=== PATIENT | female | born 1945 | race Caucasian/White ===

== ENCOUNTER 2017-07-03 20:44 | Emergency (ER) | payer MEDICARE ==
[~2017-07-03] VITALS: Ht 165.1 cm; Wt 63.5 kg
[~2017-07-03 20:44] MED LIST: ACET325 PO; AMIT75 PO; BISA10S PR; CALCA500CH PO; CLON2 PO; DIPATR PO; HYDMOR2 PO; METO50 PO; NICO14TP TOP; OMEP20ER PO; PROM12.5S PR; SIME80CH PO; TAMS.4ER PO
[2017-07-03 21:09] LABS: BASOPHILS ABSOLUTE AUTO 0.07 K/mm3 (0.00-0.23); BASOPHILS PERCENT AUTO 1 % (0-2); EOSINOPHILS ABSOLUTE AUTO 0.43 K/mm3 (0.00-0.68); EOSINOPHILS PERCENT AUTO 6 % (0-6); Hematocrit 32.3 % (33.0-51.0); Hemoglobin 10.2 g/dL (11.5-16.0); IMMATURE GRAN ABSOLUTE AUTO 0.01 K/mm3 (0.00-0.10); IMMATURE GRAN PERCENT AUTO 0 % (0-1); LYMPHOCYTES ABSOLUTE AUTO 1.91 K/mm3 (0.84-5.20); LYMPHOCYTES PERCENT AUTO 26 % (21-46); MONOCYTES ABSOLUTE AUTO 0.55 K/mm3 (0.16-1.47); MONOCYTES PERCENT AUTO 7 % (4-13); Mean Corpuscular HGB 26.2 pg (26.0-34.0); Mean Corpuscular HGB Conc 31.6 g/dL (31.5-36.5); Mean Corpuscular Volume 83 fL (80-100); Mean Platelet Volume 8.4 fL (9.1-12.4); NEUTROPHILS ABSOLUTE AUTO 4.49 K/mm3 (1.96-9.15); NEUTROPHILS PERCENT AUTO 60 % (41-73); Platelet Count 331 K/mm3 (150-400); RDW Coefficient Variation 16.2 % (11.7-14.2); RDW Standard Deviation 49.1 fL (35.1-46.3); White Blood Cell Count 7.46 K/mm3 (4.00-11.30)
[2017-07-03 21:29] LABS: Alanine Aminotransfer (ALT/SGP 14 U/L (12-78); Albumin, Blood 3.2 g/dL (3.4-5.0); Albumin/Globulin Ratio 0.7 (0.8-1.8); Alk Phos 130 U/L (50-136); Anion Gap 9 mmol/L (6-16); Aspartate Aminotrans (AST/SGOT 12 U/L (12-37); Bilirubin, Total 0.2 mg/dL (0.1-1.0); Blood Urea Nitrogen 9 mg/dL (8-24); Bun/Creatinine Ratio 16.1 (12.0-20.0); CO2, Blood 24 mmol/L (21-32); Calcium, Blood 8.7 mg/dL (8.5-10.1); Chloride, Blood 99 mmol/L (98-108); Creatinine, Blood 0.56 mg/dL (0.40-1.00); Globulin, Blood 4.4 g/dL (2.2-4.0); Glomerular Filtration Rate >60 (60-); Glucose, Blood 114 mg/dL (70-99); Potassium, Blood 3.5 mmol/L (3.5-5.5); Sodium, Blood 132 mmol/L (136-145); Total Protein, Blood 7.6 g/dL (6.4-8.2); Troponin I <0.015 ng/mL (0.000-0.040)
[2017-07-03] MEDS ORDERED: HYDR1TAB94 PO (22:05)
[2017-07-03] MEDS ORDERED: AMLO5 PO (22:05)
[2017-07-03] MEDS ORDERED: PRAV20 PO (22:06)
[2017-07-04] MEDS ORDERED: Norco 5-325 Ta1 EACH PO (00:19)
[2017-07-04] MEDS ORDERED: LEVO750 PO (00:19)
== END 2017-07-04 00:42 | disposition home or self-care (01) ==
LOC: ER 20:44
PROVIDERS: Emergency Medicine
DX: I71.4 Abdominal aortic aneurysm, without rupture (principal); Z88.2 Allergy status to sulfonamides; Z88.8 Allergy status to other drugs, medicaments and biological substances; Z79.899 Other long term (current) drug therapy; I10 Essential (primary) hypertension; F41.9 Anxiety disorder, unspecified; Z87.891 Personal history of nicotine dependence
CPT/HCPCS: 36415; 71046; 71260; 80053; 83880; 84484; 85025; 93005; 93010; 96374; 96375; 99284; J1170; J2405; Q9967

== ENCOUNTER 2017-07-06 09:16 | Emergency (ER) | payer MEDICARE ==
[~2017-07-06] VITALS: Ht 167.6 cm; Wt 63.5 kg
[~2017-07-06 09:16] MED LIST changes: +AMLO5 PO; +HYDR1TAB94 PO; +LEVO750 PO; +Norco 5-325 Ta1 EACH PO; +PRAV20 PO
[2017-07-06] MEDS ORDERED: WARF5 PO (09:39)
[2017-07-06] MEDS ORDERED: ENOX60I SC (09:39)
[2017-07-06] MEDS ORDERED: BACL10 PO (09:40)
[2017-07-06] MEDS ORDERED: DULO30 (09:40)
[2017-07-06 09:58] LABS: BASOPHILS ABSOLUTE AUTO 0.07 K/mm3 (0.00-0.23); BASOPHILS PERCENT AUTO 1 % (0-2); EOSINOPHILS ABSOLUTE AUTO 0.53 K/mm3 (0.00-0.68); EOSINOPHILS PERCENT AUTO 7 % (0-6); Hematocrit 33.4 % (33.0-51.0); Hemoglobin 10.5 g/dL (11.5-16.0); IMMATURE GRAN ABSOLUTE AUTO 0.02 K/mm3 (0.00-0.10); IMMATURE GRAN PERCENT AUTO 0 % (0-1); LYMPHOCYTES ABSOLUTE AUTO 1.33 K/mm3 (0.84-5.20); LYMPHOCYTES PERCENT AUTO 16 % (21-46); MONOCYTES ABSOLUTE AUTO 0.67 K/mm3 (0.16-1.47); MONOCYTES PERCENT AUTO 8 % (4-13); Mean Corpuscular HGB 26.1 pg (26.0-34.0); Mean Corpuscular HGB Conc 31.4 g/dL (31.5-36.5); Mean Corpuscular Volume 83 fL (80-100); NEUTROPHILS PERCENT AUTO 68 % (41-73); RDW Coefficient Variation 16.2 % (11.7-14.2); RDW Standard Deviation 48.9 fL (35.1-46.3); Red Blood Cell Count 4.02 M/mm3 (3.80-5.20); White Blood Cell Count 8.12 K/mm3 (4.00-11.30)
[2017-07-06 10:00] LABS: Mean Platelet Volume 8.6 fL (9.1-12.4); Platelet Count 331 K/mm3 (150-400)
[2017-07-06 10:10] LABS: International Normalized Ratio 1.04; Prothrombin Time Results 10.8 Sec (9.7-11.5)
[2017-07-06 10:17] LABS: Alanine Aminotransfer (ALT/SGP 11 U/L (12-78); Albumin, Blood 3.2 g/dL (3.4-5.0); Albumin/Globulin Ratio 0.8 (0.8-1.8); Alk Phos 125 U/L (50-136); Anion Gap 6 mmol/L (6-16); Aspartate Aminotrans (AST/SGOT 12 U/L (12-37); Bilirubin, Total 0.1 mg/dL (0.1-1.0); Blood Urea Nitrogen 9 mg/dL (8-24); Bun/Creatinine Ratio 15.7 (12.0-20.0); CO2, Blood 26 mmol/L (21-32); Calcium, Blood 8.8 mg/dL (8.5-10.1); Chloride, Blood 101 mmol/L (98-108); Creatinine, Blood 0.57 mg/dL (0.40-1.00); Globulin, Blood 4.2 g/dL (2.2-4.0); Glomerular Filtration Rate >60 (60-); Glucose, Blood 98 mg/dL (70-99); Potassium, Blood 4.1 mmol/L (3.5-5.5); Sodium, Blood 133 mmol/L (136-145); Total Protein, Blood 7.4 g/dL (6.4-8.2); Troponin I <0.015 ng/mL (0.000-0.040)
== END 2017-07-06 12:59 | disposition home or self-care (01) ==
LOC: ER 09:16
PROVIDERS: Emergency Medicine
DX: I82.412 Acute embolism and thrombosis of left femoral vein (principal); I26.99 Other pulmonary embolism without acute cor pulmonale; I10 Essential (primary) hypertension; F41.9 Anxiety disorder, unspecified; F17.200 Nicotine dependence, unspecified, uncomplicated; Z88.2 Allergy status to sulfonamides; Z88.6 Allergy status to analgesic agent; Z79.899 Other long term (current) drug therapy; Z79.01 Long term (current) use of anticoagulants
CPT/HCPCS: 36415; 80053; 83880; 84484; 85025; 85610; 85730; 93005; 93010; 93970; 96374; 99284; J2405

== ENCOUNTER 2017-07-07 13:49 | Emergency (ER) | payer MEDICARE ==
[~2017-07-07] VITALS: Ht 167.6 cm; Wt 63.5 kg
[~2017-07-07 13:49] MED LIST changes: +BACL10 PO; +DULO30; +ENOX60I SC; +WARF5 PO
[2017-07-07 14:42] LABS: BASOPHILS ABSOLUTE AUTO 0.05 K/mm3 (0.00-0.23); BASOPHILS PERCENT AUTO 1 % (0-2); EOSINOPHILS ABSOLUTE AUTO 0.34 K/mm3 (0.00-0.68); EOSINOPHILS PERCENT AUTO 4 % (0-6); Hematocrit 33.1 % (33.0-51.0); Hemoglobin 10.4 g/dL (11.5-16.0); IMMATURE GRAN ABSOLUTE AUTO 0.02 K/mm3 (0.00-0.10); IMMATURE GRAN PERCENT AUTO 0 % (0-1); LYMPHOCYTES ABSOLUTE AUTO 1.01 K/mm3 (0.84-5.20); LYMPHOCYTES PERCENT AUTO 13 % (21-46); MONOCYTES ABSOLUTE AUTO 0.52 K/mm3 (0.16-1.47); MONOCYTES PERCENT AUTO 7 % (4-13); Mean Corpuscular HGB 25.9 pg (26.0-34.0); Mean Corpuscular HGB Conc 31.4 g/dL (31.5-36.5); Mean Corpuscular Volume 83 fL (80-100); Mean Platelet Volume 8.4 fL (9.1-12.4); NEUTROPHILS ABSOLUTE AUTO 5.91 K/mm3 (1.96-9.15); NEUTROPHILS PERCENT AUTO 75 % (41-73); Platelet Count 333 K/mm3 (150-400); RDW Coefficient Variation 16.3 % (11.7-14.2); RDW Standard Deviation 49.2 fL (35.1-46.3); Red Blood Cell Count 4.01 M/mm3 (3.80-5.20); White Blood Cell Count 7.85 K/mm3 (4.00-11.30)
[2017-07-07 14:59] LABS: International Normalized Ratio 1.32; Prothrombin Time Results 13.9 Sec (9.7-11.5)
[2017-07-07 15:01] LABS: Alanine Aminotransfer (ALT/SGP 17 U/L (12-78); Albumin, Blood 3.2 g/dL (3.4-5.0); Albumin/Globulin Ratio 0.7 (0.8-1.8); Alk Phos 120 U/L (50-136); Anion Gap 7 mmol/L (6-16); Aspartate Aminotrans (AST/SGOT 20 U/L (12-37); Bilirubin, Total 0.2 mg/dL (0.1-1.0); Blood Urea Nitrogen 11 mg/dL (8-24); Bun/Creatinine Ratio 17.7 (12.0-20.0); CO2, Blood 26 mmol/L (21-32); Calcium, Blood 8.8 mg/dL (8.5-10.1); Chloride, Blood 102 mmol/L (98-108); Creatinine, Blood 0.62 mg/dL (0.40-1.00); Globulin, Blood 4.4 g/dL (2.2-4.0); Glomerular Filtration Rate >60 (60-); Glucose, Blood 100 mg/dL (70-99); Potassium, Blood 3.7 mmol/L (3.5-5.5); Sodium, Blood 135 mmol/L (136-145); Total Protein, Blood 7.6 g/dL (6.4-8.2)
== END 2017-07-07 16:19 | disposition home or self-care (01) ==
LOC: ER 13:49
PROVIDERS: Emergency Medicine
DX: F41.9 Anxiety disorder, unspecified (principal); I10 Essential (primary) hypertension; Z87.891 Personal history of nicotine dependence; Z79.899 Other long term (current) drug therapy; Z79.01 Long term (current) use of anticoagulants; Z86.711 Personal history of pulmonary embolism; Z86.718 Personal history of other venous thrombosis and embolism
CPT/HCPCS: 36415; 70450; 71046; 80053; 85025; 85610; 93005; 93010; 96374; 99284; J2405

== ENCOUNTER → 2017-07-09 | Outpatient (CLI) | payer MEDICARE ==
[~2017-07-09] MED LIST changes: +Amitriptyline150 MG PO; +CEPH500 PO; +Duoneb 2.5-0.5 M3 ML INH; +FERROUS SULFATE PO; +FURO20 PO; +Fentanyl1 EACH TD; +Kristalose20 GM PO; +LOVENOX SC; +ONDA8 PO; +Oxycodone-Apap1 EAC3 PO; +PRAV20; +Percocet 5-3251 EACH PO; +Prednisone50 MG PO; +Ventolin/Prove6.7 GM INH; +WATER PILL PO; +[UNRECOGNIZED DRUG - OTHER]
[2017-07-09 14:24] LABS: International Normalized Ratio 1.71; Prothrombin Time Results 18.1 Sec (9.7-11.5)
== END ==
LOC: OLS 13:39 → LAB SHORT 13:39
PROVIDERS: Nurse Practitioner Family
DX: I26.99 Other pulmonary embolism without acute cor pulmonale (principal)
CPT/HCPCS: 85610

== ENCOUNTER 2017-07-21 15:52 | Emergency (ER) | payer MEDICARE ==
[~2017-07-21] VITALS: Ht 167.6 cm; Wt 63.5 kg
[~2017-07-21 15:52] MED LIST changes: -Amitriptyline150 MG PO; -CEPH500 PO; -Duoneb 2.5-0.5 M3 ML INH; -FERROUS SULFATE PO; -FURO20 PO; -Fentanyl1 EACH TD; -Kristalose20 GM PO; -LOVENOX SC; -ONDA8 PO; -Oxycodone-Apap1 EAC3 PO; -PRAV20; -Percocet 5-3251 EACH PO; -Prednisone50 MG PO; -Ventolin/Prove6.7 GM INH; -WATER PILL PO; -[UNRECOGNIZED DRUG - OTHER]
[2017-07-21] MEDS ORDERED: Oxycodone-Apap1 EAC3 PO (16:27)
[2017-07-21] MEDS ORDERED: Ventolin/Prove6.7 GM INH (16:28)
[2017-07-21] MEDS ORDERED: Norco 5-325 Ta1 EACH PO (17:04)
== END 2017-07-21 17:20 | disposition home or self-care (01) ==
LOC: ER 15:52
DX: M54.6 Pain in thoracic spine (principal); F41.9 Anxiety disorder, unspecified; I10 Essential (primary) hypertension; Z88.2 Allergy status to sulfonamides; Z79.51 Long term (current) use of inhaled steroids; Z79.01 Long term (current) use of anticoagulants; Z79.899 Other long term (current) drug therapy; Z86.711 Personal history of pulmonary embolism; Z86.718 Personal history of other venous thrombosis and embolism; Z87.891 Personal history of nicotine dependence
CPT/HCPCS: 99283

== ENCOUNTER 2017-07-30 15:58 | Emergency (ER) | payer OTHER, MEDICARE ==
[~2017-07-30] VITALS: Ht 167.6 cm; Wt 63.5 kg
[~2017-07-30 15:58] MED LIST changes: +Oxycodone-Apap1 EAC3 PO; +Ventolin/Prove6.7 GM INH
[2017-07-30] MEDS ORDERED: Norco 5-325 Ta1 EACH PO (17:45)
== END 2017-07-30 18:15 | disposition home or self-care (01) ==
LOC: ER 15:58
DX: S22.41XD Multiple fractures of ribs, right side, subsequent encounter for fracture with routine healing (principal); R91.8 Other nonspecific abnormal finding of lung field; Z88.2 Allergy status to sulfonamides; Z79.899 Other long term (current) drug therapy; Z79.891 Long term (current) use of opiate analgesic; Z79.01 Long term (current) use of anticoagulants; F41.9 Anxiety disorder, unspecified; I10 Essential (primary) hypertension; Z87.891 Personal history of nicotine dependence; V89.2XXD Person injured in unspecified motor-vehicle accident, traffic, subsequent encounter
CPT/HCPCS: 96372; 99284; J3010

== ENCOUNTER 2017-08-02 16:00 | Emergency (ER) | payer MEDICARE ==
[~2017-08-02] VITALS: Ht 167.6 cm; Wt 63.5 kg
[2017-08-02] MEDS ORDERED: CLON2 PO (18:49)
[2017-08-02] MEDS ORDERED: Amitriptyline150 MG PO (18:49)
[2017-08-02] MEDS ORDERED: WATER PILL PO (18:50)
[2017-08-02] MEDS ORDERED: WARF5 PO (18:50)
[2017-08-02] MEDS ORDERED: PRAV20 PO (18:50)
[2017-08-02] MEDS ORDERED: AMLO5 PO (18:50)
[2017-08-02] MEDS ORDERED: LOVENOX SC (18:51)
[2017-08-02] MEDS ORDERED: Norco 5-325 Ta1 EACH PO (18:52)
[2017-08-02] MEDS ORDERED: Percocet 5-3251 EACH PO (20:56)
== END 2017-08-02 21:29 | disposition home or self-care (01) ==
LOC: ER 16:00
DX: M25.511 Pain in right shoulder (principal); G89.3 Neoplasm related pain (acute) (chronic); M84.48XA Pathological fracture, other site, initial encounter for fracture; F41.9 Anxiety disorder, unspecified; I10 Essential (primary) hypertension; Z86.711 Personal history of pulmonary embolism; Z86.718 Personal history of other venous thrombosis and embolism; Z88.2 Allergy status to sulfonamides; Z88.6 Allergy status to analgesic agent; Z79.899 Other long term (current) drug therapy; Z79.01 Long term (current) use of anticoagulants; Z87.891 Personal history of nicotine dependence
CPT/HCPCS: 73030; 93005; 93010; 96372; 99284; J3010

== ENCOUNTER 2017-08-18 18:24 | Emergency (ER) | payer MEDICARE ==
[~2017-08-18] VITALS: Ht 167.6 cm; Wt 63.5 kg
[~2017-08-18 18:24] MED LIST changes: +Amitriptyline150 MG PO; +LOVENOX SC; +Percocet 5-3251 EACH PO; +WATER PILL PO
[2017-08-18] MEDS ORDERED: FURO20 PO (18:48)
[2017-08-18 19:32] LABS: Source, Urine Catheter
[2017-08-18 19:37] LABS: BASOPHILS ABSOLUTE AUTO 0.05 K/mm3 (0.00-0.23); BASOPHILS PERCENT AUTO 1 % (0-2); EOSINOPHILS ABSOLUTE AUTO 0.45 K/mm3 (0.00-0.68); EOSINOPHILS PERCENT AUTO 6 % (0-6); Hematocrit 27.4 % (33.0-51.0); Hemoglobin 8.8 g/dL (11.5-16.0); IMMATURE GRAN ABSOLUTE AUTO 0.02 K/mm3 (0.00-0.10); IMMATURE GRAN PERCENT AUTO 0 % (0-1); LYMPHOCYTES ABSOLUTE AUTO 1.55 K/mm3 (0.84-5.20); LYMPHOCYTES PERCENT AUTO 22 % (21-46); MONOCYTES ABSOLUTE AUTO 0.72 K/mm3 (0.16-1.47); MONOCYTES PERCENT AUTO 10 % (4-13); Mean Corpuscular HGB 25.4 pg (26.0-34.0); Mean Corpuscular HGB Conc 32.1 g/dL (31.5-36.5); Mean Corpuscular Volume 79 fL (80-100); Mean Platelet Volume 8.6 fL (9.1-12.4); NEUTROPHILS ABSOLUTE AUTO 4.31 K/mm3 (1.96-9.15); NEUTROPHILS PERCENT AUTO 61 % (41-73); Platelet Count 322 K/mm3 (150-400); RDW Coefficient Variation 14.6 % (11.7-14.2); RDW Standard Deviation 42.7 fL (35.1-46.3); Red Blood Cell Count 3.46 M/mm3 (3.80-5.20)
[2017-08-18 19:43] LABS: Appearance, Urine Clear (Clear); Bilirubin, Urine Neg (Neg); Blood, Urine 1+ (Neg); Color, Urine Yellow (P-Yellow); Glucose Qualitative, Urine Neg (Neg); Ketones, Urine Neg (Neg); Leukocyte Esterase, Urine Neg (Neg); Nitrite, Urine Neg (Neg); Protein, Urine Neg (Neg); Urobilinogen, Urine NORM (Normal)
[2017-08-18 19:58] LABS: Alanine Aminotransfer (ALT/SGP 10 U/L (12-78); Albumin, Blood 2.8 g/dL (3.4-5.0); Albumin/Globulin Ratio 0.7 (0.8-1.8); Alk Phos 79 U/L (50-136); Anion Gap 7 mmol/L (6-16); Aspartate Aminotrans (AST/SGOT 11 U/L (12-37); Bilirubin, Total 0.2 mg/dL (0.1-1.0); Blood Urea Nitrogen 10 mg/dL (8-24); Bun/Creatinine Ratio 15.7 (12.0-20.0); CO2, Blood 28 mmol/L (21-32); Calcium, Blood 8.6 mg/dL (8.5-10.1); Chloride, Blood 99 mmol/L (98-108); Creatinine, Blood 0.64 mg/dL (0.40-1.00); Globulin, Blood 4.2 g/dL (2.2-4.0); Glomerular Filtration Rate >60 (60-); Glucose, Blood 102 mg/dL (70-99); Potassium, Blood 3.5 mmol/L (3.5-5.5); Sodium, Blood 134 mmol/L (136-145); Troponin I <0.015 ng/mL (0.000-0.040)
[2017-08-18 20:00] LABS: Bacteria Not Seen /hpf; Red Blood Cells, Urine 0-2 /hpf (0-2); Squamous Epithelial Cells Not Seen /hpf (Few); White Blood Cells, Urine 0-2 /hpf (0-5)
[2017-08-18] MEDS ORDERED: Kristalose20 GM PO (20:31)
== END 2017-08-18 20:50 | disposition home or self-care (01) ==
LOC: ER 18:24
PROVIDERS: Emergency Medicine
DX: K59.00 Constipation, unspecified (principal); D64.9 Anemia, unspecified; C34.90 Malignant neoplasm of unspecified part of unspecified bronchus or lung; I10 Essential (primary) hypertension; F41.9 Anxiety disorder, unspecified; Z86.711 Personal history of pulmonary embolism; Z86.718 Personal history of other venous thrombosis and embolism; Z87.891 Personal history of nicotine dependence
CPT/HCPCS: 36415; 51701; 71045; 80053; 81001; 84484; 85025; 93005; 93010; 96360; 99283; J7030

== ENCOUNTER 2017-08-20 21:36 | Emergency (ER) | payer MEDICARE ==
[~2017-08-20] VITALS: Ht 172.7 cm; Wt 63.5 kg
[~2017-08-20 21:36] MED LIST changes: +FURO20 PO; +Kristalose20 GM PO
[2017-08-20] MEDS ORDERED: ONDA8 PO (22:18)
[2017-08-20] MEDS ORDERED: FERROUS SULFATE PO (22:19)
[2017-08-20] MEDS ORDERED: [UNRECOGNIZED DRUG - OTHER] (22:19)
[2017-08-20 22:55] LABS: BASOPHILS PERCENT AUTO 0 % (0-2); EOSINOPHILS PERCENT AUTO 0 % (0-6); Hematocrit 28.4 % (33.0-51.0); Hemoglobin 9.1 g/dL (11.5-16.0); IMMATURE GRAN ABSOLUTE AUTO 0.05 K/mm3 (0.00-0.10); IMMATURE GRAN PERCENT AUTO 1 % (0-1); LYMPHOCYTES ABSOLUTE AUTO 0.48 K/mm3 (0.84-5.20); LYMPHOCYTES PERCENT AUTO 5 % (21-46); MONOCYTES ABSOLUTE AUTO 0.47 K/mm3 (0.16-1.47); MONOCYTES PERCENT AUTO 5 % (4-13); Mean Corpuscular HGB 25.2 pg (26.0-34.0); Mean Corpuscular Volume 79 fL (80-100); Mean Platelet Volume 8.4 fL (9.1-12.4); NEUTROPHILS ABSOLUTE AUTO 8.26 K/mm3 (1.96-9.15); NEUTROPHILS PERCENT AUTO 89 % (41-73); Platelet Count 333 K/mm3 (150-400); RDW Coefficient Variation 14.4 % (11.7-14.2); RDW Standard Deviation 41.1 fL (35.1-46.3); Red Blood Cell Count 3.61 M/mm3 (3.80-5.20); White Blood Cell Count 9.26 K/mm3 (4.00-11.30)
[2017-08-20 23:19] LABS: Alanine Aminotransfer (ALT/SGP 18 U/L (12-78); Albumin/Globulin Ratio 0.7 (0.8-1.8); Alk Phos 92 U/L (50-136); Anion Gap 7 mmol/L (6-16); Aspartate Aminotrans (AST/SGOT 19 U/L (12-37); Bilirubin, Total 0.2 mg/dL (0.1-1.0); Blood Urea Nitrogen 20 mg/dL (8-24); Bun/Creatinine Ratio 31.7 (12.0-20.0); CO2, Blood 27 mmol/L (21-32); Calcium, Blood 8.7 mg/dL (8.5-10.1); Chloride, Blood 95 mmol/L (98-108); Creatinine, Blood 0.63 mg/dL (0.40-1.00); Ethanol (Alcohol), Blood, Med <3 mg/dL; Globulin, Blood 4.3 g/dL (2.2-4.0); Glomerular Filtration Rate >60 (60-); Glucose, Blood 101 mg/dL (70-99); Potassium, Blood 3.7 mmol/L (3.5-5.5); Salicylate <1.7 mg/dL (2.8-20.0); Sodium, Blood 129 mmol/L (136-145); Total Protein, Blood 7.3 g/dL (6.4-8.2)
[2017-08-20 23:23] LABS: Thyroid Stimulating Hormone 0.828 uIU/mL (0.360-4.800)
[2017-08-20 23:26] LABS: Acetaminophen, Random <2.0 ug/mL (10.0-30.0)
[2017-08-21 01:41] LABS: Source, Urine Clean Catch
[2017-08-21 01:47] LABS: Bilirubin, Urine Neg (Neg); Blood, Urine Neg (Neg); Glucose Qualitative, Urine Neg (Neg); Ketones, Urine Neg (Neg); Leukocyte Esterase, Urine Neg (Neg); Nitrite, Urine Neg (Neg); Protein, Urine Neg (Neg); Specific Gravity, Urine 1.005 (1.003-1.022); Urobilinogen, Urine NORM (Normal)
[2017-08-21 01:48] LABS: Appearance, Urine Clear (Clear); Color, Urine Pale Yellow (P-Yellow)
[2017-08-21 02:15] LABS: U Amphetamine Screen Not Detected; U Barbituate Screen Not Detected; U Benzodiazapine Screen Not Detected; U Buprenorphine Screen Not Detected; U Cannabinoids Screen Not Detected; U Cocaine Screen Not Detected; U Methadone Screen Not Detected; U Methamphetamine Screen Not Detected; U Opiates Screen Not Detected; U Oxycodone Screen DETECTED; U Phencyclidine Screen Not Detected; U Propoxyphene Screen Not Detected
== END 2017-08-21 02:03 | disposition home or self-care (01) ==
LOC: ER 21:36
PROVIDERS: Emergency Medicine
DX: F22 Delusional disorders (principal); E87.1 Hypo-osmolality and hyponatremia; C34.90 Malignant neoplasm of unspecified part of unspecified bronchus or lung; Z88.2 Allergy status to sulfonamides; Z88.8 Allergy status to other drugs, medicaments and biological substances; Z79.899 Other long term (current) drug therapy; Z79.01 Long term (current) use of anticoagulants; Z79.891 Long term (current) use of opiate analgesic; Z87.891 Personal history of nicotine dependence; I10 Essential (primary) hypertension; F41.9 Anxiety disorder, unspecified
CPT/HCPCS: 36415; 70450; 80053; 81003; 81025; 84443; 85025; 99284; G0480; Q3014

== ENCOUNTER 2017-09-07 15:32 | Emergency (ER) | payer MEDICARE ==
[~2017-09-07] VITALS: Ht 172.7 cm; Wt 63.5 kg
[~2017-09-07 15:32] MED LIST changes: +FERROUS SULFATE PO; +ONDA8 PO; +[UNRECOGNIZED DRUG - OTHER]
[2017-09-07] MEDS ORDERED: Fentanyl1 EACH TD (16:01)
[2017-09-07] MEDS ORDERED: Oxycodone-Apap1 EAC3 PO (16:01)
[2017-09-07] MEDS ORDERED: AMLO5 PO (16:01)
[2017-09-07] MEDS ORDERED: PRAV20 (16:02)
[2017-09-07] MEDS ORDERED: Ventolin/Prove6.7 GM INH (16:03)
[2017-09-07 16:36] LABS: BASOPHILS ABSOLUTE AUTO 0.07 K/mm3 (0.00-0.23); BASOPHILS PERCENT AUTO 2 % (0-2); EOSINOPHILS ABSOLUTE AUTO 0.24 K/mm3 (0.00-0.68); EOSINOPHILS PERCENT AUTO 6 % (0-6); Hematocrit 28.5 % (33.0-51.0); Hemoglobin 9.2 g/dL (11.5-16.0); IMMATURE GRAN ABSOLUTE AUTO 0.01 K/mm3 (0.00-0.10); IMMATURE GRAN PERCENT AUTO 0 % (0-1); LYMPHOCYTES ABSOLUTE AUTO 1.84 K/mm3 (0.84-5.20); LYMPHOCYTES PERCENT AUTO 42 % (21-46); MONOCYTES ABSOLUTE AUTO 0.69 K/mm3 (0.16-1.47); MONOCYTES PERCENT AUTO 16 % (4-13); Mean Corpuscular HGB 24.6 pg (26.0-34.0); Mean Corpuscular HGB Conc 32.3 g/dL (31.5-36.5); Mean Corpuscular Volume 76 fL (80-100); Mean Platelet Volume 8.7 fL (9.1-12.4); NEUTROPHILS PERCENT AUTO 35 % (41-73); Platelet Count 521 K/mm3 (150-400); RDW Coefficient Variation 15.9 % (11.7-14.2); RDW Standard Deviation 43.8 fL (35.1-46.3); Red Blood Cell Count 3.74 M/mm3 (3.80-5.20); White Blood Cell Count 4.35 K/mm3 (4.00-11.30)
[2017-09-07 16:48] LABS: International Normalized Ratio 1.74; Prothrombin Time Results 18.4 Sec (9.7-11.5)
[2017-09-07 16:50] LABS: Source, Urine Clean Catch
[2017-09-07 16:54] LABS: Appearance, Urine Hazy (Clear); Bilirubin, Urine Neg (Neg); Blood, Urine 1+ (Neg); Color, Urine Yellow (P-Yellow); Glucose Qualitative, Urine Neg (Neg); Ketones, Urine Neg (Neg); Leukocyte Esterase, Urine 3+ (Neg); Nitrite, Urine Neg (Neg); Protein, Urine Neg (Neg); Urobilinogen, Urine NORM (Normal)
[2017-09-07 16:55] LABS: Magnesium, Blood 1.4 mg/dL (1.6-2.4); Troponin I <0.015 ng/mL (0.000-0.040)
[2017-09-07 16:56] LABS: Alanine Aminotransfer (ALT/SGP 14 U/L (12-78); Albumin, Blood 3.2 g/dL (3.4-5.0); Albumin/Globulin Ratio 0.8 (0.8-1.8); Alk Phos 92 U/L (50-136); Anion Gap 9 mmol/L (6-16); Aspartate Aminotrans (AST/SGOT 15 U/L (12-37); Bilirubin, Total 0.1 mg/dL (0.1-1.0); Blood Urea Nitrogen 14 mg/dL (8-24); Bun/Creatinine Ratio 16.3 (12.0-20.0); CO2, Blood 28 mmol/L (21-32); Calcium, Blood 8.7 mg/dL (8.5-10.1); Chloride, Blood 100 mmol/L (98-108); Creatinine, Blood 0.86 mg/dL (0.40-1.00); Globulin, Blood 4.1 g/dL (2.2-4.0); Glomerular Filtration Rate >60 (60-); Glucose, Blood 107 mg/dL (70-99); Sodium, Blood 137 mmol/L (136-145); Total Protein, Blood 7.3 g/dL (6.4-8.2)
[2017-09-07 17:43] LABS: Squamous Epithelial Cells Many /hpf (Few)
[2017-09-07 17:46] LABS: Amorphous Light (0-Heavy); Bacteria Few /hpf
[2017-09-07] MEDS ORDERED: CEPH500 PO (18:02)
== END 2017-09-07 18:26 | disposition home or self-care (01) ==
LOC: ER 15:32
PROVIDERS: Emergency Medicine
DX: N39.0 Urinary tract infection, site not specified (principal); D64.9 Anemia, unspecified; E83.42 Hypomagnesemia; R79.1 Abnormal coagulation profile; I10 Essential (primary) hypertension; F41.9 Anxiety disorder, unspecified; Z86.711 Personal history of pulmonary embolism; Z86.718 Personal history of other venous thrombosis and embolism; Z87.891 Personal history of nicotine dependence; Z79.899 Other long term (current) drug therapy; Z79.01 Long term (current) use of anticoagulants
CPT/HCPCS: 36415; 71045; 80053; 81001; 83735; 84484; 85025; 85610; 87086; 93005; 93010; 99283

== ENCOUNTER → 2017-09-12 | Outpatient (CLI) | payer MEDICARE ==
[~2017-09-12] MED LIST changes: +CEPH500 PO; +Fentanyl1 EACH TD; +PRAV20
== END ==
LOC: LAB SHORT 17:43 → LAB 17:43 → LAB FUT 09-12 17:30
DX: R19.7 Diarrhea, unspecified (principal)
CPT/HCPCS: 87493

== ENCOUNTER 2017-10-02 16:06 | Emergency (ER) | payer MEDICARE ==
[~2017-10-02] VITALS: Ht 170.2 cm; Wt 59.0 kg
[2017-10-02 17:02] LABS: BASOPHILS ABSOLUTE AUTO 0.06 K/mm3 (0.00-0.23); BASOPHILS PERCENT AUTO 1 % (0-2); EOSINOPHILS ABSOLUTE AUTO 0.27 K/mm3 (0.00-0.68); EOSINOPHILS PERCENT AUTO 4 % (0-6); Hematocrit 35.2 % (33.0-51.0); Hemoglobin 11.6 g/dL (11.5-16.0); IMMATURE GRAN ABSOLUTE AUTO 0.03 K/mm3 (0.00-0.10); IMMATURE GRAN PERCENT AUTO 0 % (0-1); LYMPHOCYTES ABSOLUTE AUTO 1.76 K/mm3 (0.84-5.20); LYMPHOCYTES PERCENT AUTO 25 % (21-46); MONOCYTES ABSOLUTE AUTO 0.47 K/mm3 (0.16-1.47); MONOCYTES PERCENT AUTO 7 % (4-13); Mean Corpuscular HGB 24.9 pg (26.0-34.0); Mean Corpuscular Volume 76 fL (80-100); Mean Platelet Volume 8.6 fL (9.1-12.4); NEUTROPHILS PERCENT AUTO 64 % (41-73); Platelet Count 217 K/mm3 (150-400); RDW Coefficient Variation 18.1 % (11.7-14.2); RDW Standard Deviation 49.1 fL (35.1-46.3); Red Blood Cell Count 4.66 M/mm3 (3.80-5.20); White Blood Cell Count 7.09 K/mm3 (4.00-11.30)
[2017-10-02 17:13] LABS: International Normalized Ratio 1.31; Prothrombin Time Results 13.7 Sec (9.7-11.5)
[2017-10-02 17:39] LABS: Alanine Aminotransfer (ALT/SGP 22 U/L (12-78); Albumin, Blood 3.9 g/dL (3.4-5.0); Alk Phos 90 U/L (50-136); Anion Gap 9 mmol/L (6-16); Aspartate Aminotrans (AST/SGOT 16 U/L (12-37); Bilirubin, Total 0.3 mg/dL (0.1-1.0); Blood Urea Nitrogen 12 mg/dL (8-24); Bun/Creatinine Ratio 15.7 (12.0-20.0); CO2, Blood 23 mmol/L (21-32); Calcium, Blood 9.5 mg/dL (8.5-10.1); Chloride, Blood 101 mmol/L (98-108); Creatinine, Blood 0.76 mg/dL (0.40-1.00); Globulin, Blood 4.1 g/dL (2.2-4.0); Glomerular Filtration Rate >60 (60-); Glucose, Blood 96 mg/dL (70-99); Potassium, Blood 3.8 mmol/L (3.5-5.5); Sodium, Blood 133 mmol/L (136-145); Troponin I <0.015 ng/mL (0.000-0.040)
[2017-10-02] MEDS ORDERED: Prednisone50 MG PO (20:16)
[2017-10-02] MEDS ORDERED: Duoneb 2.5-0.5 M3 ML INH (20:16)
== END 2017-10-02 20:58 | disposition home or self-care (01) ==
LOC: ER 16:06
PROVIDERS: Emergency Medicine
DX: J44.1 Chronic obstructive pulmonary disease with (acute) exacerbation (principal); C34.90 Malignant neoplasm of unspecified part of unspecified bronchus or lung; Z88.2 Allergy status to sulfonamides; Z88.8 Allergy status to other drugs, medicaments and biological substances; Z79.899 Other long term (current) drug therapy; Z79.01 Long term (current) use of anticoagulants; Z79.891 Long term (current) use of opiate analgesic; I10 Essential (primary) hypertension; F41.9 Anxiety disorder, unspecified; F17.200 Nicotine dependence, unspecified, uncomplicated
CPT/HCPCS: 36415; 71046; 80053; 83880; 84484; 85025; 85610; 93005; 93010; 94640; 99283; J1100

== ENCOUNTER → 2018-01-21 | Outpatient (CLI) | payer MEDICARE ==
[~2018-01-21] MED LIST changes: +Duoneb 2.5-0.5 M3 ML INH; +Prednisone50 MG PO
== END ==
LOC: LAB 15:00 → LAB SHORT 15:00
DX: L08.9 Local infection of the skin and subcutaneous tissue, unspecified (principal)
CPT/HCPCS: 87070; 87077; 87147; 87186; 87205